=== PATIENT | male | born 1940 | race Caucasian/White ===

== ENCOUNTER 2023-04-26 10:35 | Outpatient (RCR) | payer MEDICARE, OTHER | END 2023-04-27 | disposition home or self-care (01) | LOC: ONC 10:35 | PROVIDERS: ATTEND Radiology Radiation Oncology | DX: C61 Malignant neoplasm of prostate (principal); I10 Essential (primary) hypertension | CPT/HCPCS: 99205; 99213 ==

== ENCOUNTER → 2023-05-04 | Outpatient (CLI) | payer MEDICARE | END | disposition home or self-care (01) | LOC: PREOP 05:46 | PROVIDERS: ATTEND Radiology Radiation Oncology | DX: Z01.818 Encounter for other preprocedural examination (principal) ==